=== PATIENT | male | born 1975 | race Caucasian/White ===

== ENCOUNTER 2022-04-07 13:56 | Emergency (ER) | payer OTHER ==
[~2022-04-07] VITALS: Ht 175.3 cm; Wt 79.4 kg
--- NOTE | 2022-04-07 14:10 | NUR ---
[id number] C/O DIZZINESS S/P EATING LUNCH. NAUSEOUS CHIEF RADIOLOGY. BG 135 CHIEF RADIOLOGY. THE PATIENT IS ALERT AND ORIENTED X4. IN ROOM AIR AND DENIES SOB. RESPIRATION REGULAR AND UNLABORED. THE PATIENT IS ATTACHED TO THE MONITOR. WARM BLANKET PROVIDED FOR COMFORT. WILL CONTINUE TO MONITOR THE PATIENT.
[2022-04-07] MEDS ORDERED: ACETAMINOPHEN ES 500 MG TABLET ONE (14:14)
--- NOTE | 2022-04-07 14:17 | NUR ---
IV LINE IS ESTABLISHED, BLOOD SPECIMEN COLLECTED AND SENT TO THE LAB. THE LINE IS SALINE LOCKED.
--- NOTE | 2022-04-07 14:17 | NUR ---
[employer]IES SALES AT THE BEDSIDE
[2022-04-07] MEDS ORDERED: IOHEXOL-350 100 ML VIAL IV ONE ×2 (14:29→14:30)
[2022-04-07 14:30] LABS: BASOPHILS % (AUTO) 0.4 % (0.0-2.0); EOSINOPHILS % (AUTO) 0.9 % (0.0-6.0); HEMATOCRIT 44 % (39-51); HEMOGLOBIN 14.7 g/dL (13.5-17.5); LYMPHOCYTES # (AUTO) 1.7 K/uL (0.8-4.8); LYMPHOCYTES % (AUTO) 36.1 % (20.0-44.0); MEAN CORPUSCULAR HGB CONC 34 g/dl (31.0-36.0); MEAN CORPUSCULAR VOLUME 87 fL (80-96); MONOCYTES # (AUTO) 0.3 K/uL (0.1-1.30); MONOCYTES % (AUTO) 7.2 % (2.0-12.0); NEUTROPHILS # (AUTO) 2.6 K/uL (1.8-8.9); NEUTROPHILS % (AUTO) 55.4 % (43.0-81.0); PLATELET COUNT (AUTO) 213 K/uL (150-450); RED BLOOD CELL COUNT(AUTO) 4.98 MIL/uL (4.5-6.0); WHITE BLOOD COUNT (AUTO) 4.6 K/uL (4.3-11.0)
[2022-04-07] MEDS ORDERED: ACETAMINOPHEN ES 500 MG TABLET PO ONE (14:30)
[2022-04-07] MEDS ORDERED: IV NS 0.9% 1,000 ML BAG IV ONE (14:30)
[2022-04-07 14:51] LABS: ALANINE AMINOTRANSFERASE 29 U/L (12-78); ALBUMIN 4.1 g/dL (3.4-5.0); ALKALINE PHOSPHATASE 66 U/L (46-116); ASPARTATE AMINOTRANSFERASE 15 U/L (15-37); BILIRUBIN,DIRECT 0.1 mg/dL (0.0-0.2); BILIRUBIN,TOTAL 0.5 mg/dL (0.2-1.0); CARBON DIOXIDE 31 mmol/L (21-32); CHLORIDE 104 mmol/L (98-107); CREATININE 0.8 mg/dL (0.6-1.3); GLUCOSE 111 mg/dL (74-106); POTASSIUM 3.6 mmol/L (3.5-5.1); SODIUM SERUM 140 mmol/L (136-145); TOTAL PROTEIN, SERUM 7.7 g/dL (6.4-8.2); UREA NITROGEN, BLOOD 7 mg/dL (7-18)
[2022-04-07 15:03] LABS: CALCIUM, SERUM 8.8 mg/dL (8.5-10.1)
--- NOTE | 2022-04-07 15:25 | NUR ---
Kylee porter in [facility] - 04/07/22 at 1539 by [place] [id number]
[2022-04-07] MEDS ORDERED: ASPIRIN 325 MG TABLET ONE (15:48)
--- NOTE | 2022-04-07 15:52 | NUR ---
COVID TEST COLLECTED AND SENT
[2022-04-07] MEDS ORDERED: ASPIRIN 325 MG TABLET PO ONE (16:00)
[2022-04-07] MEDS ORDERED: HYDROMORPHONE INJ 2 MG/ML DISP.SYRIN IV ONE (16:00)
--- NOTE | 2022-04-07 16:30 | NUR ---
[facility] [id number] NUMBER FOR REPORT [phone]
[2022-04-07] MEDS ORDERED: ONDANSETRON HCL/PF 4 MG/2 ML VIAL ONE (16:34)
[2022-04-07 16:43] VITALS: BP 117/94
--- NOTE | 2022-04-07 16:43 | NUR ---
REPORT GIVEN TO JENA FOR [place]
--- NOTE | 2022-04-07 16:51 | NUR ---
REPORT GIVEN TO JUNE, PT BEING TRANSPORTED TO [facility] IN STABLE CONDITON.
[2022-04-07] MEDS ORDERED: IV NS 0.9% 500 ML BAG IV ONE (17:00)
[2022-04-07] MEDS ORDERED: ONDANSETRON HCL/PF 4 MG/2 ML VIAL IVP ONE (17:00)
== END 2022-04-07 17:00 | disposition short-term general hospital (02) ==
LOC: EDBD 13:58 → ER 13:58
DX: G45.8 Other transient cerebral ischemic attacks and related syndromes (principal); I89.9 Noninfective disorder of lymphatic vessels and lymph nodes, unspecified; Z20.822 Contact with and (suspected) exposure to COVID-19; R94.31 Abnormal electrocardiogram [ECG] [EKG]
CPT/HCPCS: 99291; 70498; 96374; 71045; 96361; 87426; 93005; 70496; 85025; 80048; 80076; 36415; 84484; 85730; 70450; J2405; J7030 ×2; Q9967; C9803